=== PATIENT | male | born 1985 | race Hispanic/Latino ===

== ENCOUNTER 2022-01-25 13:53 | Emergency (ER) | payer OTHER ==
[~2022-01-25 13:53] MED LIST: Iopamidol 370 76% 100 ML VIAL ONE
[2022-01-25] MEDS ORDERED: HYDROcodone/Acetaminophen 5/325 mg Tablet ONE (14:37)
[2022-01-25] MEDS ORDERED: Boostrix 0.5 ML (Tdap) VIAL ONE (14:37)
[2022-01-25] MEDS ORDERED: Lidocaine 1% w/Epinephrine 1:100K 20 ML VIAL ONE ×2 (14:37→16:00)
[2022-01-25] MEDS ORDERED: Ketorolac Tromethamine 30 MG/ML VIAL ONE ×2 (17:08→17:11)
== END 2022-01-25 17:57 | disposition home or self-care (01) ==
LOC: ERS 13:53
DX: S01.01XA Laceration without foreign body of scalp, initial encounter (principal); S80.11XA Contusion of right lower leg, initial encounter; Z23 Encounter for immunization; V89.2XXA Person injured in unspecified motor-vehicle accident, traffic, initial encounter
CPT/HCPCS: 12002; 70450; 71260; 72125; 74177; 90471; 90715; 96374; J1885; Q9967

== ENCOUNTER 2022-02-04 18:09 | Emergency (ER) | payer OTHER | END 2022-02-04 18:15 | disposition home or self-care (01) | LOC: ERS 18:09 | DX: S01.01XD Laceration without foreign body of scalp, subsequent encounter (principal) ==